=== PATIENT | male | born 1985 | race African-American/Black ===

== ENCOUNTER 2022-06-28 15:48 | Emergency (ER) | payer OTHER, SELFPAY ==
[2022-06-28] MEDS ORDERED: Boostrix 0.5 ML (Tdap) VIAL (>/=7 yrs of age) ONE (17:07)
[2022-06-28] MEDS ORDERED: Lidocaine 1% PF 5 ML VIAL ONE (17:07)
[2022-06-28] MEDS ORDERED: Morphine 2 MG/ML VIAL ONE (17:37)
[2022-06-28] MEDS ORDERED: Cephalexin 250 MG CAP ONE (18:40)
== END 2022-06-28 18:43 | disposition home or self-care (01) ==
LOC: BURERS 15:48
DX: S61.431A Puncture wound without foreign body of right hand, initial encounter (principal); Z23 Encounter for immunization; W34.09XA Accidental discharge from other specified firearms, initial encounter
CPT/HCPCS: 64450; 90471; 90715; 96372; J2272